=== PATIENT | female | born 1970 | race Caucasian/White ===

== ENCOUNTER → 2016-07-06 | Outpatient (CLI) | payer BC ==
[~2016-07-06] MED LIST: ADVIL PO; FEXO1TAB54 PO; FLNIN NAE
--- NOTE | 2016-07-06 12:45 | MAMMOGRAPHY REPORT ---
BILATERAL DIGITAL SCREENING MAMMOGRAM TOMOSYNTHESIS WITH CAD: 07/06/2016 TECHNIQUE: Breast tomosynthesis in addition to standard 2D mammography was performed. Current study was also evaluated with a Computer Aided Detection (CAD) system. COMPARISON: Comparison is made to exams dated: 10/01/2013 mammogram, 10/17/2014 mammogram, 04/10/2012 mammogram, 04/07/2014 mammogram, 10/03/2013 mammogram, and 04/06/2011 mammogram - [facility]. BREAST COMPOSITION: There are scattered areas of fibroglandular density in both breasts. FINDINGS: No suspicious masses, calcifications, or areas of architectural distortion are noted in e ither breast. There has been no significant interval change compared to prior exams. IMPRESSION: ACR BI-RADS CATEGORY 1: NEGATIVE There is no mammographic evidence of malignancy. A 1 year screening mammogram is recommended. The p atient will receive written notification of the results. Approximately 10% of breast cancers are not detected with mammography. A negative mammographic repor t should not delay biopsy if a clinically suggestive mass is present. Susan Bergman M.D. ah/:07/06/2016 12:09:58 Slurry Tank Operator: Janet SERVIN(Misha)(M), [facility] letter sent: Normal 1/2 BI-RADS Code: ACR BI-RADS Category 1: Negative
== END | disposition home or self-care (01) ==
LOC: C.MAMM 10:27
PROVIDERS: ATTEND Family Medicine
DX: Z12.31 Encounter for screening mammogram for malignant neoplasm of breast (principal)

== ENCOUNTER → 2017-01-19 | Outpatient (CLI) | payer BC ==
--- NOTE | 2017-01-19 14:07 | MAMMOGRAPHY REPORT ---
UNILATERAL LEFT DIGITAL DIAGNOSTIC MAMMOGRAM TOMOSYNTHESIS WITH CAD AND TARGETED LEFT ULTRASOUND: 01/03 CLINICAL HISTORY: The patient reports a palpable left breast lump for approximately 2 days. She had a bruise on the skin in this region for the last 2 weeks although does not remember any trauma to thi s region. TECHNIQUE: Breast tomosynthesis in addition to standard 2D mammography was performed. Current study was also evaluated with a Computer Aided Detection (CAD) system. Left CC and MLO 2-D and tomosynthes is images were obtained. COMPARISON: Comparison is made to exams dated: 07/06/2016 mammogram, 10/17/2014 ultrasound, 10/17/2014 m ammogram, 10/01/2013 mammogram, 04/10/2012 mammogram, and 04/06/2011 mammogram - [facility] enter. BREAST COMPOSITION: There are scattered areas of fibroglandular density in the left breast. FINDINGS: A triangle marker burgos the site of the palpable lump in the left upper outer quadrant. At the site of the palpable lump there is a superficial ill-defined asymmetry, best seen on the cc cristal synthesis images, which is of mixed density including fat density. The area is ill-defined but measu res approximately 11 mm. The remainder of the left breast is stable mammographically compared to srikanth or exams, without suspicious masses, calcifications, or areas of architectural distortion noted. Targeted ultrasound was performed of the area of the palpable lump pointed out by the patient, in the left breast at 1:00, approximately 2 cm from the nipple. At the site of the palpable lump there is superficial ill-defined hyperechoic tissue which contains multiple small anechoic masses within the t issue consistent with oil cysts. The area is ill-defined but measures approximately 2.4 x 1.3 x 2.3 cm. This corresponds with the mammographic asymmetry and has sonographic features of fat necrosis. On clinical exam there is mild yellowish discoloration of the overlying skin consistent with a resolv ing bruise. Given the presence of a bruise in this region and given the mammographic and sonographic findings, findings are benign and consistent with fat necrosis. IMPRESSION: ACR BI-RADS CATEGORY 2: BENIGN, TARGETED ULTRASOUND ACR BI-RADS CATEGORY 2: BENIGN The area of the palpable lump in the left 1:00 breast has mammographic and sonographic features of fa t necrosis. The patient does not remember any trauma to this region but does have a resolving bruise on the overlying skin, confirming prior trauma. Findings are benign and consistent with fat necrosi s. There is no mammographic or targeted sonographic evidence of malignancy. Recommend clinical foll ow-up, and recommend routine bilateral screening mammograms which are due July 2017. The patient has been verbally notified of the results. Approximately 10% of breast cancers are not detected with mammography. A negative mammographic report should not delay biopsy if a clinically suggestive mass is present. Susan Bergman M.D. ah/:01/19/2017 11:49:07 Camera Maker: Eduarda SERVIN(Misha)(M), [facility] letter sent: Normal 1/2 BI-RADS Code: ACR BI-RADS Category 2: Benign Ultrasound BI-RADS: ACR BI-RADS Category 2: Benign
--- NOTE | 2017-01-25 13:45 | CODING QUERY NO DIAGNOSIS ---
TREATMENT RENDERED WITHOUT A DIAGNOSIS Dr. Rosado, To promote full compliance with coding requirements relating to patient care, physician participation is requested in all cases of magnetic prospecting operator uncertainty. Please assist us with providing a diagnosis/symptom for the test(s) below: A diagnosis/symptom was not documented on your Order. A valid diagnosis/symptom is required to bill all insurances. Please remember that we are unable to code a diagnosis of rule out, probable, possible, questionable, or suspected. Tests that require a diagnosis: * UNILATERAL LT TOMOSYNTHESIS DIAGNOSIS: * DIAGNOSTIC MAMMO LT W CAD DIAGNOSIS: * ULTRASOUND BREAST LIMITED DIAGNOSIS: DATE OF SERVICE: 01/19/17 Provider Signature: Date: Thank you Bonifacio [facility] Information Management Once completed, please kindly fax back to [phone] For questions please call [phone]
== END | disposition home or self-care (01) ==
LOC: C.MAMM 11:15
PROVIDERS: ATTEND Family Medicine
DX: N63 Unspecified lump in breast (principal)

== ENCOUNTER → 2017-06-13 | Outpatient (CLI) | payer BC ==
[~2017-06-13] MED LIST changes: -ADVIL PO; -FLNIN NAE; +HYDR-5688 PO; +ONDA4TAB10 SL; +PRLSR20 PO
--- NOTE | 2017-06-13 13:33 | DIAGNOSTIC IMAGING REPORT ---
RENAL ULTRASOUND CLINICAL HISTORY: Ureteral stone. COMPARISON STUDY: CT of the abdomen and pelvis April 11, 2017. TECHNIQUE: Sonography of the kidneys and the urinary bladder was performed. FINDINGS: The right kidney measures 11.1 x 3.3 x 3.7 cm and the left measures 10.9 x 4.5 x 4.3 cm. The renal pyramids are dense. 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 There is no hydronephrosis. The right hydronephrosis shown on exam of April 11, 2017 has resolved. Both ureteral jets were identified. IMPRESSION: 1. No hydronephrosis. 2. 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 Electronically signed by: Jimmy Young M.D. 06/13/2017 1:31 PM Dictated Date/Time: 06/13/2017 1:24 PM
== END | disposition home or self-care (01) ==
LOC: C.ULTR 12:45
PROVIDERS: ATTEND Urology
DX: N20.1 Calculus of ureter (principal)